=== PATIENT | male | born 2000 | race Caucasian/White ===

== ENCOUNTER 2023-11-23 20:27 | Emergency (ER) | payer OTHER, SELFPAY ==
[2023-11-23 20:27] VITALS: BP 123/86; PULSE 68; RESP 15; TEMP 37; O2SAT 99; BMI 27.2
--- NOTE | 2023-11-23 21:12 | EX.ED.DYSGE1 ---
HPI History of Present Illness Chief Complaint: Abd Pain PFSH PFSH Medical History no medical history Home Medications ondansetron 4 mg disintegrating tablet 4 mg PO Q8H PRN PRN Nausea #10 tabs 11/23/23 [Rx Last Taken Unknown] Allergy/AdvReac Type Severity Reaction Status Date / Time No Known Allergies Allergy Verified 11/23/23 20:31 Surgical History no surgical history Social History Smoking Status: Never smoker EXAM Physical Exam Const Vital Signs: 11/23/23 20:27 11/23/23 22:44 Temperature 98.6 F Temperature Source Temporal Pulse Rate 68 Respiratory Rate 15 18 Blood Pressure 123/86 H 138/74 H Blood Pressure Mean 98 95 Pulse Ox 99 Oxygen Delivery Method Room Air [facility] MDM Narrative Medical decision making narrative: HISTORY OF PRESENT ILLNESS: 23-year-old male presents with abdominal pain. States has history umbilical hernia. States he is at work today stood up and noted abdominal pain rating to his groin. States pain is located around his umbilicus. Sharp. He further states he was at work today and developed severe abdominal pain that radiated to his right groin. Denies any vomiting or nausea. Denies any constipation. No history abdominal surgeries. States he seen 2 different surgeons was told him he did not have a hernia. REVIEW OF SYSTEMS: Pertinent positives: Abdominal pain Pertinent negatives: Vomiting, fever, urinary complaints, constipation or diarrhea. PHYSICAL EXAM: Nursing triage notes reviewed, Vital signs reviewed Constitutional: please see mdm HENT: MMM Eyes: Pupils equal round and reactive to light, Extraocular muscles intact Neck: No stridor, no JVD, full neck ROM Lungs: Clear to auscultation, No wheezing or rales. No increased work of breathing, no conversational dyspnea, no accessory muscle use, no nasal flaring. No respiratory distress noted Heart: Regular rate and rhythm, No murmurs, No rubs and No gallops, 2+ distal pulses (radial, femoral, posterior tibial) in all extremities Abdomen: Soft, there is no tenderness, rigidity, rebound or guarding, no obvious peritoneal signs, no palpable pulsatile abdominal masses, no auscultated abdominal bruit : No CVAT, right testicle without tenderness palpation, normal lie, no swelling, intact cremaster reflex. Extremities: No edema Neuro: No focal neurological deficits, cranial nerves II through XII intact, 5/5 strength in all extremities. Intact sensation to light touch in all extremities, 2+ reflexes bilateral patella tendons. Normal gait. No ataxia. Skin: No rash or lesions noted MEDICAL DECISION MAKING: Chief Complaint: Abdominal pain concern for hernia External records reviewed: Prior outpatient notes reviewed: Saw general surgery in January 2023 was diagnosed with chronic groin strain. No obvious inguinal hernia was noted. Factors affecting care: Groin strain Consults: Urology (Dr. Shrestha) MDM Narrative: Patient was hemodynamically stable, afebrile, nontoxic-appearing. Abdominal exam was benign no obvious hernia. No peritoneal signs. I considered the following differential diagnosis: Umbilical hernia, nephrolithiasis, pancreatitis, UTI, pyelonephritis, epididymitis There is no scrotal tenderness to suggest epididymitis. I obtained a broad lab and imaging workup to further elucidate the etiology of the patient's complaints. I treated the patient with 1 L normal saline, Zofran and Toradol. ALL IMAGES (IF OBTAINED) HAVE BEEN PERSONALLY REVIEWED AND INTERPRETED BY MYSELF. CBC without leukocytosis, severe anemia, no thrombocytopenia. CMP without evidence of acute kidney injury, significant electrolyte abnormality, anion gap, no evidence hepatobiliary pathology. Lactate is wnl indicating no end-organ hypoperfusion and/or hypoxia. Urinalysis shows no evidence of urinary inflammation suggestive of UTI CT scan shows evidence 8 mm proximal right kidney stone with hydronephrosis The synthesis of the patient's history, physical exam, labs images suggest kidney stone as potential etiology. Patient no evidence of infected stone. His pain was controlled was instructed to take Tylenol ibuprofen and follow-up with urology as an outpatient. Did call urology spoke with Dr. Shrestha who stated the patient did not require inpatient mission at this time or surgical intervention is appropriate for discharge home with close outpatient follow-up. The patient and/or family, caregivers express understanding. The patient and/or family, caregivers agrees with the plan. Shared decision making: I will have a discussion with the patient and or visitors regarding risk/benefits of further testing or admission. They will be made aware of of the risk/benefits inherent in this decision they will be given the opportunity to voice understanding. Total critical care time today provided was at least 0 minutes. This excludes separately billable procedures. Critical care time (if documented) is secondary to the patient having high probability of clinically significant/life threatening deterioration in the patient's condition which required my urgent intervention. Impression: 1. Abdominal pain 2. Nephrolithiasis 3. Hydronephrosis Dispo: Discharge home This note was generated with [employer] dictation software. It may contain incorrect words, spelling, and punctuation that were not noted in review of the chart prior to signing. Lab Data Labs: Laboratory Results - last 24 hr 11/23/23 11/23/23 21:45 22:10 WBC 6.5 RBC 4.98 Hgb 13.9 Hct 42.9 MCV 86.1 MCH 27.9 MCHC 32.4 RDW Std Deviation 37.2 RDW Coeff of Varinder 11.9 Plt Count 260 MPV 10.0 Immature Gran % (Auto) 0.300 Neut % (Auto) 49.0 Lymph % (Auto) 38.2 Sumner % (Auto) 8.9 Eos % (Auto) 2.4 Baso % (Auto) 1.2 H Absolute Neuts (auto) 3.2 Absolute Lymphs (auto) 2.50 Nucleated RBC % 0 Sodium 137 Potassium 3.8 Chloride 105 Carbon Dioxide 29.0 Anion Gap 3 L BUN 14 Creatinine 1.22 Estim Creat Clear Calc 96.40 Est GFR (MDRD) Af Amer 94 Est GFR (MDRD) Non-Af 77 BUN/Creatinine Ratio 11.5 Glucose 96 Lactic Acid 0.5 Calcium 9.3 Total Bilirubin 0.50 Direct Bilirubin 0.13 AST 16 ALT 21 Alkaline Phosphatase 48 Total Protein 7.3 Albumin 3.9 Globulin 3.4 Urine Color Yellow Urine Clarity Clear Urine pH 6.5 Ur Specific Newell 1.015 Urine Protein Negative Urine Glucose (UA) Normal Urine Ketones Negative Urine Occult Blood 10 H Urine Nitrite Negative Urine Bilirubin Negative Urine Urobilinogen Normal Ur Leukocyte Esterase Negative Urine RBC 0 SEEN Urine WBC 0 SEEN Ur Squamous Epith Cells 0 SEEN Urine Bacteria 0 SEEN Urine Mucus 0 SEEN Radiography Diagnostic Testing: Clinical Impression(s) from Imaging Studies Abdomen/Pelvis CT 11/23/23 21:28 IMPRESSION: 1. Thin linear 8 mm stone in the proximal right ureter with moderate right hydronephrosis. 2. No hernia. Electronically Signed: Eyal Valente DO at 22:20 EST , Discharge Plan Triage Chief Complaint: Abd Pain ED Provider: Wojciech Hartman Dx/Rx/DC Orders Clinical Impression: Nephrolithiasis Instructions: ED Kidney Stone with Pain Prescriptions: New ondansetron 4 mg tablet,disintegrating 4 mg PO Q8H PRN PRN (Reason: Nausea) Qty: 10 0RF Primary Care Provider: Chuckie May Referrals: Chuckie May MD [Primary Care Provider] - Activity Restrictions/Additional Instructions: Thank you for trusting us with your care today! Please take Tylenol (2 pills, 650 mg), ibuprofen (2 pills, 400 mg) every 6 hours as needed for pain and fever control. Please take Zofran as needed for nausea if this develops. Please return to the emergency department if your symptoms change or worsen. Specifically develop fever, if you lose consciousness, develop worsening pain that is not improved by the above regiment. Please follow with your primary care physician for further outpatient evaluation and management. Disposition Disposition: Home, Self Care
--- NOTE | 2023-11-23 21:28 | CT_ITS ---
INDICATION: Periumbilical abdominal pain, rule out hernia EXAMINATION: CT Abdomen And Pelvis W/ Contrast Injection TECHNIQUE: Helically acquired images were obtained of the abdomen and pelvis with sagittal and coronal reconstructed images. Individualized dose optimization techniques were used for this CT. IV contrast dosage and agent: 100 mL of Isovue-370. Oral contrast: None. COMPARISON: None. FINDINGS: VESSELS: No abdominal aortic aneurysm or dissection. Retroaortic left renal vein. LIVER: No evidence of a mass. No intrahepatic or extrahepatic biliary duct dilation. GALLBLADDER: No calcified stones. No evidence of cholecystitis. PANCREAS: No focal solid or cystic mass. No evidence of pancreatitis. SPLEEN: Normal. ADRENAL GLANDS: Normal. KIDNEYS AND URETERS: Right lower pole renal stone. 8 mm thin linear calcification within the proximal right ureter. Moderate right hydronephrosis. No significant asymmetric perinephric stranding. URINARY BLADDER: Unremarkable. BOWEL: No evidence of diverticulosis or diverticulitis. Appendix appears normal. No evidence of bowel obstruction. REPRODUCTIVE ORGANS: No evidence of a pelvic mass. PERITONEUM: No intraabdominal free fluid or free air. LYMPH NODES: No pathologically enlarged mesenteric or retroperitoneal lymph nodes. ABDOMINAL WALL: No abdominal or pelvic wall hernia. BONES: No acute abnormality. LOWER CHEST: Visualized lung bases are unremarkable. CT/Abdomen/Pelvis W IV Cont ONLY IMPRESSION: 1. Thin linear 8 mm stone in the proximal right ureter with moderate right hydronephrosis. 2. No hernia. Electronically Signed: Eyal Valente DO at 22:20 EST ,
[2023-11-23] MEDS: Ketorolac 15 MG/ML Vial IV (21:40)
[2023-11-23] MEDS: 0.9% Normal Saline (1000mL) 1,000 ML 1000 ML IV (21:40)
[2023-11-23] MEDS: Ondansetron 4 MG/2 ML Vial IV (21:41)
--- OUTSIDE RECORDS SUMMARY | 2023-11-23 21:41 | XMS RPT_ITS | CCD ---
Author Name Unknown Address [address] [place] [address] Organization [facility] Care Team Providers Care Video News Editor Name Role Phone Gunjan Pendleton Unavailable GINNA [facility] Admitting Unavaila linda [facility], [facility] Attending Unavaila linda [facility], [facility] Primary Care Unavaila BRENDON Shah Consulting Unavailable PROVIDER, UNKNOWN Consulting Unavailable CHUCKIE MAY Admitting Unavailable CHUCKIE MAY Attending Unavailable CHUCKIE MAY Primary Care Unavailable CHUCKIE MAY Consulting Unavailable PROVIDER, UNKNOWN Consulting Unavailable PROVIDER, UNKNOWN Consulting Unavailable PROVIDER, UNKNOWN Consulting Unavailable Chuckie May MD Unavailable [facility] Unavailable [phone] Huyen RAMON, Caity Garcia Unavailable Nigel MACHINE TOOL ELECTRICIAN, Jessica Unavailable Goric (scribe), Hemanta Unavailable Unavaila ble De GREWALN, Alaina Unavailable Unavailable Fredy RAMON, Alejandro Benoit Unavailable Shabana Maki PA-C Unavailable King JENNAC, Felipe Hawkins Unavailable Shabana Zelaya RN Unavailable Unavaila Elzbieta Adams RN Unavailable [phone] Brendon Collins PA-C Unavailable Prosper (Scribe), Oleksandr Unavailable Unavailab yadi Rea MACHINE TOOL ELECTRICIAN, Caity Gipson Unavailable Unavailab yadi Monge LPN, Selena Prather Unavailable Unavailab yadi Silva LPN, Amaya Unavailable Unavailesperanza Jiménez LPN, Amy Wilson Unavailable Unavaila ble Unavailable Unavailable [facility], . [facility] Unavailable [facility] Unavailable Medications Completed/Discontinued Medications Medication Drug Class(es) Dates Sig (Normalized) Sig (Original) [id number] 200 actuat albuterol 0.09 mg/actuat metered dose inhaler (6 sources) beta2-Adrenergic Agonist Start: 05-28-2017 End: 02-12-2023 take 2 puff(s) by inhalation every hour as needed ProAir HFA 108 (90 Base) MCG/ACT Inhalation Aerosol Solution ; 2 (two) puff every four hours, as needed for cough/wheeze/chest tightness for 0 days Quantity: 1 {Inhaler} Refills: 3 Ordered: 28-May-2017 JAUNITO Monge Selena Prather Start: 28-May-2017 End: 12-Feb-2023 Status: Discontinued Comments: Medication taken as needed. This order discontinued per -Span. Problems Active Problems Problem Classification Problem Date Documented Da te Episodic/Chronic Abdominal hernia (12 sources) Right inguinal hernia ; Translations: [Unilateral inguinal hernia, without obstruction or gangrene, not specified as recurrent] 05-14-2023 Episodic Abdominal pain (17 sources) Abdominal pain, right lower quadrant; Translations: [Inguinal pain] 09-22-2013 Episodic Administrative/social admission (9 sources) Persons encountering health services in other specified circumstances; Translations: [Issue of repeat prescriptions] Onset: 06-11-2019 06-04-2017 Episodic Asthma (20 sources) Exercise-induced asthma; Translations: [Exercise induced bronchospasm] 05-14-2023 Chronic Chronic obstructive pulmonary disease and bronchiectasis (6 sources) Bronchitis; Translations: [Bronchitis, not specified as acute or chronic] 10-31-2016 Episodic Fracture of lower limb (18 sources) Closed fracture of sesamoid bone of foot; Translations: [Other fracture of unspecified foot, initial encounter for closed fracture] 01-17-2018 Episodic Genitourinary symptoms and ill-defined conditions (6 sources) Blood in urine; Translations: [Hematuria, unspecified] 02-21-2019 Episodic Immunizations and screening for infectious disease (20 sources) Requires vaccination; Translations: [Encounter for immunization] 01-04-2016 Episodic Inflammation; infection of eye (except that caused by tuberculosis or sexually transmitteddisease) (6 sources) Conjunctivitis, unspecified 03-19-2015 Episodic Malaise and fatigue (6 sources) Fatigue; Translations: [Other fatigue] 07-29-2013 Episodic Other aftercare (6 sources) Drug indicated; Translations: [Other skilled nursing (current) drug therapy] 04-04-2012 Episodic Other bone disease and musculoskeletal deformities (1 source) Apophysitis; Translations: [Osteochondropathy, unspecified of unspecified site] Onset: 08-07-2017 08-07-2017 Chronic Other connective tissue disease (6 sources) Foot pain; Translations: [Pain in left foot] 08-07-2012 Episodic Other gastrointestinal disorders (12 sources) Irritable bowel syndrome; Translations: [Irritable bowel syndrome without diarrhea] 05-14-2023 Chronic Other injuries and conditions due to external causes (12 sources) Injury of foot; Translations: [Unspecified injury of unspecified foot, initial encounter] 05-14-2023 Episodic Other injuries and conditions due to external causes (6 sources) Injury of left shoulder; Translations: [Unspecified injury of left shoulder and upper arm, initial encounter] 07-28-2016 Episodic Other injuries and conditions due to external causes (4 sources) Other specified injuries of abdomen, initial encounter; Translations: [Other specified sites of sprains and strains] 11-12-2023 Episodic Other lower respiratory disease (6 sources) Rib pain; Translations: [Pleurodynia] 09-22-2013 Episodic Other skin disorders (6 sources) Acne; Translations: [Acne, unspecified] 05-28-2017 Episodic Other upper respiratory disease (20 sources) Allergic rhinitis; Translations: [Allergic rhinitis, unspecified] 05-03-2015 Chronic Other upper respiratory infections (18 sources) Sinusitis; Translations: [Chronic sinusitis, unspecified] 10-07-2018 Chronic Other upper respiratory infections (20 sources) Acute maxillary sinusitis; Translations: [Acute maxillary sinusitis, unspecified] 05-22-2017 Episodic Otitis media and related conditions (18 sources) Acute suppurative otitis media without spontaneous rupture of ear drum; Translations: [Acute suppurative otitis media without spontaneous rupture of ear drum, bilateral] 09-04-2016 Episodic Pneumonia (except that caused by tuberculosis or sexually transmitted disease) (12 sources) Bacterial pneumonia; Translations: [Unspecified bacterial pneumonia] 08-17-2015 Episodic Residual codes; unclassified (18 sources) Finding of body mass index; Translations: [Body mass index (BMI) pediatric, 5th percentile to less than 85th percentile for age] 05-14-2023 Episodic Unclassified (6 sources) not feeling well - Hasn't been feeling well over the last couple months. Had a sinus infection in May initially and then strep symptoms in early Jun (rapid strep and cultures negative). Symptoms variable and primarily include fatigue. Has been taking MVI and vitamin C. Complains of upset stomach, feeling tired and run down. He complains of headaches. He does not have a fever or sore throat. He enjoys school and is active in football. Does get a little winded when playing football but this is chronic for him.Several football players he interacts with have mono. 07-29-2013 Unclassified (6 sources) Cold Symptoms - Symptoms include nasal congestion (chronic seasonal allergies, this has not been worse since onset of fever), sore throat, fever, chills, general malaise and headache, but do not include sneezing, runny nose, ear pain, dry cough or facial pain. The onset was gradual 4 day(s) ago. The symptoms occur constantly. The patient describes this as moderate in severity and worsening. Current treatment includes non-prescription cold medication. Risk factors do not include smoking. The patient has been exposed to an individual with an upper respiratory infection and an individual with strep (2 weeks ago sister had strep). Medical history includes seasonal allergies, recurrent sinusitis and asthma (sports induced asthma), but patient denies history of recurrent strep pharyngitis, tonsillectomy or recurrent ear infections. Note for Cold Symptoms : Pt c/o generalized aching and swollen glands. Pt. also c/o right side pain x 1 day. No c/o nausea or vomiting, no change in BM pattern, no dysuria 12-18-2011 Viral infection (12 sources) Viral exanthem; Translations: [Unspecified viral infection characterized by skin and mucous membrane lesions] 05-14-2023 Episodic Past or Other Problems Problem Classification Problem Date Documented Date Episodic/Chronic Acquired foot deformities (1 source) Pes planus; Translations: [Flat foot [pes planus] (acquired), unspecified foot] Onset: 04-28-2016 04-28-2016 Episodic Other connective tissue disease (1 source) Other bursitis of hip, unspecified hip; Translations: [Other bursitis of hip, unspecified hip] Onset: 08-07-2017 08-07-2017 Episodic Other connective tissue disease (1 source) Peroneal tendinitis; Translations: [Peroneal tendinitis, unspecified leg] Onset: 06-09-2016 06-20-2016 Episodic Other connective tissue disease (1 source) Achilles tendinitis; Translations: [Achilles tendinitis, right leg] Onset: 04-28-2016 04-28-2016 Episodic Other nervous system disorders (1 source) Piriformis syndrome; Translations: [Lesion of sciatic nerve, right lower limb] Onset: 08-07-2017 08-07-2017 Episodic Other non-traumatic joint disorders (1 source) Hip pain; Translations: [Pain in right hip] Onset: 08-07-2017 08-07-2017 Episodic Other non-traumatic joint disorders (1 source) Ankle pain; Translations: [Pain in right ankle and joints of right foot] Onset: 04-28-2016 04-28-2016 Episodic Pneumonia (except that caused by tuberculosis or sexually transmitted disease) (6 sources) Pneumonia (except that caused by tuberculosis or sexually transmitted disease) 08-17-2015 Unclassified (6 sources) Rash - The onset of the rash has been acute and has been occurring in a persistent pattern for 3 days. The course has been increasing. The rash is characterized as red. The rash was first seen on the face, the upper extremity and the lower extremity. There has been associated pain. Note for Rash : no fever he is aware of. A few days ago he had BELTRAN, no appetite, a little achey. 05-14-2023 Unclassified (6 sources) Abdominal pain - The onset of the abdominal pain has been acute and has been occurring in an intermittent pattern for 6 weeks. The course has been increasing. The pain is described as a moderate sharp pain and dull ache. The pain is located in the right lower quadrant and radiates to the right groin. There has been no associated dysuria. Note for Abdominal pain : is aggravated by lifting. reviewed by [facility] 02-13-2023 Unclassified (6 sources) Foot pain - The pain is in the left foot. The onset of the foot pain was sudden following an incident not at work (injured while playing softball.) and has been occurring in a persistent pattern for 3 days. The course has been worsening. The pain is moderate. The pain is characterized as a sharp stabbing. The pain has not been relieved by anything. Note for Foot pain : Pain ia across the arch and laterally in the left foot. 05-25-2020 Unclassified (6 sources) UTI - Symptoms include dysuria, urinary frequency, urinary urgency, hematuria (this am), abdominal pain and back pain. The pain is located in the back (right side, then it will go around to his abdomen). Onset was sudden (was having intermittently for about a week but now it is constant). The symptoms occur constantly. The patient describes this as moderate in severity and worsening. Associated symptoms do not include fever, chills, nausea or vomiting. Note for UTI : Ibuprofen 600mg this am. 02-21-2019 Unclassified (6 sources) Cold Symptoms - Symptoms include sneezing, nasal congestion, ear pain (right side), ear fullness, sore throat, chills, general malaise and headache, but do not include runny nose, dry cough, productive cough or fever. The onset was sudden 1 week(s) ago. The symptoms occur constantly. The patient describes this as moderate in severity and unchanged. Current treatment includes non-prescription cold medication. 10-07-2018 Unclassified (6 sources) re check foot - patient seen on 12/25/2017 for fractoure of sesamoid bone on R foot. patient said foot feels better wearing boot. no swelling or tenderness to foot. would like to go back to work january 28 01-17-2018 Unclassified (6 sources) Foot pain - The pain is in the right foot and is located in the dorsal foot (medial side). The onset of the foot pain was sudden (patient was lifting weights and while squatting, felt a pinch of his right foot.) and has been occurring in a persistent pattern for 1 day. The course has been gradually worsening. The pain is characterized as a sharp stabbing (becomes sharper with weight bearing). The pain has not been relieved by anything. There have been no previous diagnostic tests. There have been no previous surgeries. Note for Foot pain : This morning, is have foot swelling and starting to bruise. 12-25-2017 Unclassified (6 sources) Well child visit #4 - 13 to 17 years - The child is here for a 16 to 17 year well-child visit. The primary caregiver is the mother and father (seperated). Family status: coping adequately. There are no behavioral problems. The patient has a balanced diet. There are no eating difficulties. Meals/day: 3. The child sleeps 8 hours at night. The child performs well in school, interacts well with peers and participates in extracurricular activities. Safety measures taken include appropriate use of safety belts and home smoke detectors. 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 05-28-2017 Unclassified (6 sources) Cold Symptoms - Symptoms include sore throat, hoarseness, dry cough (occasionally will be productive), fever (last night), chills, general malaise (body aches), headache and facial pain, but do not include nasal congestion, runny nose or ear pain. The onset was sudden 1 week(s) ago. The symptoms occur constantly. The patient describes this as moderate in severity and worsening. Current treatment includes an oral decongestant (Sudafed) and NSAIDs. The patient has not been exposed to an individual with an upper respiratory infection. Medical history includes seasonal allergies and asthma (sports induced asthma). Note for Upper respiratory infection : Reviewed by [facility]. 05-22-2017 Unclassified (6 sources) Cold Symptoms - Symptoms include nasal congestion, runny nose, ear pain (both), ear fullness, dry cough, productive cough and headache, but do not include fever. The onset was gradual 1 week(s) ago. The symptoms occur constantly. The patient describes this as moderate in severity and worsening. Current treatment includes an oral decongestant. Risk factors do not include child in daycare or smoking. The patient has been exposed to an individual with similar symptoms. 11-30-2016 Unclassified (6 sources) Cold Symptoms - Symptoms include sneezing, nasal congestion, runny nose, ear pain (bilateral), sore throat, hoarseness, dry cough, fever, chills, general malaise and headache. The onset was sudden 7 day(s) ago. The symptoms occur constantly. The patient describes this as moderate in severity and unchanged. Current treatment includes acetaminophen and NSAIDs. Note for Upper respiratory infection : reviewed by [facility] 10-31-2016 Unclassified (6 sources) Cold Symptoms - Symptoms include nasal congestion, ear pain, ear fullness, scratchy throat, hoarseness, dry cough, fever, chills, general malaise and headache, but do not include sneezing or runny nose. The onset was gradual 5 day(s) ago. The symptoms occur constantly. The patient describes this as moderate in severity and worsening. Current treatment includes cough suppressants, acetaminophen and NSAIDs. Risk factors do not include smoking. The patient has been exposed to an individual with similar symptoms. Medical history includes seasonal allergies, recurrent sinusitis and asthma, but patient denies history of tonsillectomy or recurrent ear infections. 09-04-2016 Unclassified (6 sources) Clavicle pain - Patient is here today due to having pain of the left clavicle area that occurred while playing soccer last evening. His left upper chest/shoulder was impacted by another player, he fell down on his left side and then was going to get a ball, fell backwards. The pain is constant, will become sharp with movement. Is painful to raise his left arm. No numbness or tingling, or radiation of pain down the left arm. Been applying Ice to the area and taking ibuprofen as needed for pain. No previous surgeries or xrays of this area. Has had multiple injuries to this shoulder over last week in soccer. 07-28-2016 Unclassified (6 sources) Cold Symptoms - Symptoms include nasal congestion, ear pain, sore throat, dry cough, fever (didn't check temp), chills and headache, but do not include runny nose. The onset was gradual 1 week(s) ago. The symptoms occur constantly. The patient describes this as moderate in severity and unchanged. Current treatment includes allergy medications and NSAIDs. The patient has been exposed to an individual with similar symptoms (school). Medical history includes seasonal allergies and recurrent sinusitis, but patient denies history of recurrent strep pharyngitis, asthma, tonsillectomy or recurrent ear infections. Note for Upper respiratory infection : Has also had a stomach ache. 2016 Unclassified (2 sources) Transition into care - The patient is transitioning into care from a hospital (01/2016 [facility], 03/2016 urology, 11/2015 ER) and a summary of care was reviewed . Note for Transition into care : Back pain improved since procedure was done. 05-27-2016 Unclassified (2 sources) [ADDITIONAL REASON] Well child visit #4 - 13 to 17 years - The child is here for a 16 to 17 year well-child visit. The primary caregiver is the mother and father (seperated). Family status: coping adequately. There are no behavioral problems. The patient has a balanced diet. There are no eating difficulties. Meals/day: 3. The child sleeps 7 hours at night. The child performs well in school, interacts well with peers and participates in extracurricular activities. Safety measures taken include appropriate use of safety belts and home smoke detectors. Note for Well child visit #4 - 13 to 17 years : He will be playing soccer, basketball, and baseball.No concerns today. 05-27-2016 Unclassified (6 sources) Cold Symptoms - Symptoms include sneezing, nasal congestion (with associated pressure around right eye (hurts to move that eye)), runny nose, purulent discharge, ear pain (mostly the left ear), sore throat, dry cough, productive cough (sometimes, from PND), fever (yesterday, subjective), general malaise, headache and facial pain (sinus pressure), but do not include hoarseness or chills (sometimes). The onset was gradual 3 day(s) ago. The symptoms occur constantly. The patient describes this as moderate in severity and worsening. Current treatment includes non-prescription cold medication (Nyquil) and an oral decongestant (Sudafed). Risk factors do not include smoking. The patient has been exposed to an individual with a cough, an individual with an upper respiratory infection and an individual with similar symptoms. Medical history includes seasonal allergies and asthma. 11-08-2015 Unclassified (6 sources) continued cough and congestion - Patient saw [facility] 08/02/15 and was diagnosed with URI and treated with augmentin. Pt. is continuing to take the antibiotic and tylenol/advil with minimal improvement. Pt. continues with a cough, chest discomfort and episdoes of shortness of breath. Pt. c/o bilateral ear pain (right > left) Pt. runs a low grade fever at times. 08-11-2015 Unclassified (6 sources) Cold Symptoms - Symptoms include ear pain, ear fullness, sore throat, dry cough, productive cough (Pt c/o chest discomfort at times.), fever, chills, general malaise and headache, but do not include sneezing, nasal congestion, runny nose or wheezing. The onset was gradual 5 day(s) ago. The symptoms occur constantly. The patient describes this as moderate in severity and worsening. Current treatment includes cough suppressants, acetaminophen and NSAIDs. Risk factors do not include smoking. The patient has been exposed to an individual with similar symptoms. Medical history includes recurrent sinusitis and asthma (exercise induced). Note for Upper respiratory infection : Pt. c/o bloody nose yesterday. 08-02-2015 Unclassified (6 sources) Form Completion Physicals - The patient feels well with no complaints, has good energy level and is sleeping well. There are no current symptoms. The patient exercises daily. The patient has an appropriate balanced diet, eats a variety of foods and takes no supplemental vitamins or iron and sleeps on average 6 hours per night. Safety measures include appropriate use of car seats/safety belts, appropriate use of helmets, appropriate use of safety belts, avoiding exposure to passive smoke and awareness of dangers of passenger-side air bags. There are no behavioral problems. Note for Form completion physical : reviewed by tiffanie 05-03-2015 Unclassified (6 sources) Cold Symptoms - Symptoms include nasal congestion, purulent discharge (post nasal), ear fullness, sore throat, dry cough (chest discomfrt at times (4 days)), headache and facial pain, but do not include sneezing, runny nose, ear pain, fever or chills. The onset was gradual week(s) ago. The symptoms occur constantly. The patient describes this as moderate in severity and worsening. Current treatment includes non-prescription cold medication, allergy medications and cough suppressants. Risk factors do not include smoking. The patient has not been exposed to an individual with similar symptoms. Medical history includes seasonal allergies (allergy injections weekly) and recurrent sinusitis, but patient denies history of asthma or tonsillectomy. 04-12-2015 Unclassified (6 sources) Eye symptoms - The onset of the eye symptoms has been sudden and has been occurring for 1 day. The course has been worsening. The eye symptoms are described as moderate and involve the left eye. The symptoms are described as pain and itching. There has been associated nasal stuffiness, runny nose and watery eyes, while there has been no blurred vision, headache or sore throat. Note for Eye symptoms : Patient and mother are concerned of having pink eye due to being told that there has been some cases of pink eye in the school recently. Does not wear contacts. No injury to eye and he has not gotten anything in eye. 03-19-2015 Unclassified (6 sources) Cold Symptoms - Symptoms include nasal congestion, ear pain (left; at onset prior to cold sx), productive cough (no dyspnea but nasal congestion makes him feel like he can't breathe), chills and general malaise, but do not include runny nose (does have PND), sore throat or fever. The onset was sudden 5 day(s) ago. The patient describes this as moderate in severity and worsening. Current treatment includes non-prescription cold medication, a decongestant nasal spray and NSAIDs. Risk factors do not include child in daycare or smoking. The patient has not been exposed to an individual with similar symptoms. 12-01-2014 Unclassified (6 sources) Cold Symptoms - Symptoms include nasal congestion, purulent discharge (post nasal), ear pain, ear fullness, scratchy throat, hoarseness, dry cough, general malaise, headache and facial pain, but do not include sneezing, runny nose, sore throat, fever or chills. The onset was gradual 3 day(s) ago. The symptoms occur constantly. The patient describes this as moderate in severity and unchanged. Current treatment includes non-prescription cold medication. Risk factors do not include smoking. The patient has not been exposed to an individual with similar symptoms. Medical history includes seasonal allergies (receives shots weekly - states that this is is very different than how his allergies act) and asthma (sports induced), but patient denies history of recurrent sinusitis, recurrent strep pharyngitis, tonsillectomy or recurrent ear infections. 06-01-2014 Unclassified (6 sources) Well child visit #4 - 13 to 17 years - The child is here for a 14 to 15 year well-child visit. The primary caregiver is the mother and father. Family status: coping adequately. There are no behavioral problems. The patient has a balanced diet. Meals/day: 3. The child performs well in school, interacts well with peers and participates in extracurricular activities. Safety measures taken include appropriate use of safety belts, home smoke detectors, avoiding exposure to passive smoke, counseling regarding substance abuse, counseling regarding safe sex/HIV and counseling regarding control. 05-12-2014 Unclassified (6 sources) Abdominal pain - The onset of the abdominal pain has been acute and has been occurring in a persistent pattern for 2 days. The course has been constant. The pain is described as a moderate sharp pain. The pain is located in the right upper quadrant and does not radiate. The symptoms are aggravated by standing, walking and motion. The symptoms have been associated with nausea, while the symptoms have not been associated with bloody stools, constipation, diarrhea, dysuria, fever, hematemesis or vomiting. Note for Abdominal pain : Pt got hit with a ball, in right upper abd Sunday. No c/o continual discomfort until later that day. Walking and moving increases pain, while resting and lying down relieves pain. Also ibuprofen helped relieve pain last night. 09-22-2013 Unclassified (6 sources) Cold Symptoms - Symptoms include nasal congestion, purulent discharge, ear fullness, scratchy throat, productive cough, fever (possibly), chills, general malaise, headache and facial pain, but do not include sneezing, ear pain or sore throat. The onset was gradual 1 week(s) ago. The symptoms occur constantly. The patient describes this as moderate in severity and worsening. Current treatment includes non-prescription cold medication (tylenol cold and cough med) and acetaminophen. The patient has been exposed to an individual with similar symptoms. Medical history includes seasonal allergies (shots weekly), recurrent sinusitis and asthma (sports induced), but patient denies history of recurrent strep pharyngitis, tonsillectomy or recurrent ear infections. 09-15-2013 Unclassified (6 sources) Sore throat - The onset of the sore throat has been acute and has been occurring in a persistent pattern for 1 day. The course has been constant. The sore throat is described as mild to moderate. The sore throat was precipitated by sinus infection (just completed course of augmentin for sinus infection). Symptoms include sore throat, fever (subjective), headache and runny nose (slight), but do not include nasal congestion, cough or ear pain. Relieving factors include nothing (has not tried meds). Medical history Includes seasonal allergies (have flared recently). Note for Sore throat : Patient has had contact with football teammates who have had strep recently. 2013 Unclassified (6 sources) Cold Symptoms - Symptoms include nasal congestion, runny nose (drainage has been clear), ear pain (bilateral; popping), sore throat (just with coughing), dry cough, headache and facial pain (cheeks), but do not include fever. The onset was gradual 2 day(s) ago. The symptoms occur constantly. The patient describes this as moderate in severity and worsening. Current treatment includes non-prescription cold medication (tylenol cold multi-symptom) and allergy medications (gets shots every 2 weeks). The patient has been exposed to an individual with similar symptoms (mom and dad). Medical history includes seasonal allergies and recurrent sinusitis. 06-18-2013 Unclassified (6 sources) Form Completion Physicals - The patient feels well with no complaints, has good energy level and is sleeping well. There are no current symptoms. The patient exercises daily. The patient has an appropriate balanced diet and takes suppemental vitamins. Safety measures include appropriate use of car seats/safety belts, appropriate use of helmets, appropriate use of safety belts, avoiding exposure to passive smoke and awareness of dangers of passenger-side air bags. There are no behavioral problems. Note for Form completion physical : reviewed by tiffanie 05-09-2013 Unclassified (6 sources) Cold Symptoms - Symptoms include nasal congestion, runny nose (minimal), sore throat (started initially with this 3-4 days ago; improving - is now mostly with coughing), dry cough and headache, but do not include fever. The onset was gradual 2 day(s) ago. The symptoms occur constantly. The patient describes this as moderate in severity and worsening. Current treatment includes acetaminophen (multisymptom; has a prescription for flonase but hasn't been using it). 01-15-2013 Unclassified (6 sources) Foot pain - The pain is in the left foot and is located in the lateral column. The onset of the foot pain was acute and has been occurring in an intermittent pattern for 3 days. The pain is moderate. The pain is characterized as a sharp stabbing (when he is on the foot). The pain is aggravated by sports activities. The pain has been relieved by ice (minimal). The symptoms have been associated with swelling (lump/swelling on side of foot). The pain was preceded by trauma (kicked at football practice twice on Sunday). There have been no previous diagnostic tests. There have been no previous evaluations. There has been no use of assistive devices. Note for Foot pain : No OTC medication. 08-07-2012 Unclassified (6 sources) Form Completion Physicals - The patient feels well with no complaints, has good energy level and is sleeping well. There are no current symptoms. The patient has an appropriate balanced diet. Safety measures include appropriate use of car seats/safety belts, appropriate use of helmets, appropriate use of safety belts, avoiding exposure to passive smoke and awareness of dangers of passenger-side air bags. There are no behavioral problems. Last tetanus vaccination: Date: (05/16/11). Note for Form Completion Physicals : allergies are well controlled by current regimen; no longer needs inhaler. 04-19-2012 Unclassified (6 sources) Cold Symptoms - Symptoms include nasal congestion, ear fullness, dry cough and headache. The onset was sudden 1 week(s) ago. The symptoms occur constantly (cough is worse in the morning). The patient describes this as moderate in severity and worsening. Current treatment includes non-prescription cold medication and allergy medications (claritin D). Risk factors do not include child in daycare or smoking. The patient has not been exposed to an individual with similar symptoms. Medical history includes seasonal allergies (on immunotherapy). 03-29-2012 Unclassified (6 sources) Sore Throat - The onset of the sore throat has been sudden and has been occurring in an increasing pattern for 2 days. The course has been constant. The sore throat is described as moderate. The sore throat was precipitated by was not precipitated by sinus problems. Symptoms include sore throat and headache, but do not include fever, runny nose or cough. The symptoms are aggravated by eating and swallowing. Medical History Includes seasonal allergies. Note for Sore Throat : Took theraflu last night. A little stuffy nose this morning. Numerous ill contacts at school. 12-01-2011 Unclassified (6 sources) Cold Symptoms - Symptoms include nasal congestion, sore throat, chills and headache, but do not include sneezing, runny nose, dry cough, fever or facial pain. The onset was sudden 2 day(s) ago. The symptoms occur constantly. The patient describes this as moderate in severity and worsening. Current treatment includes acetaminophen. Medical History includes seasonal allergiesPatient denies history of asthma. Note for Cold Symptoms : Ill contacts at school (including classmates with strep). Has been using flonase every night. Hurts to swallow. 08-11-2011 Unclassified (6 sources) Form Completion Physicals - The patient feels well with minor complaints (Really having trouble with allergies. Sees Dr. Salazar and does the shots. Has been doing this for about 1 1/2 years. Normally does well with injections but allergies are really bad right now. Just had shot this afternoon. Very congested and miserable.). The patient exercises daily. The patient has an appropriate balanced diet and takes suppemental vitamins (Takes vitamin daily.) and sleeps on average 9 hours per night. Habits include caffeine (Drinks at least 1 pop daily.) use. Safety measures include appropriate use of helmets and appropriate use of safety belts. There are no behavioral problems. Last tetanus vaccination: Date: (LAst dtap was 2004.). 05-16-2011 Unclassified (6 sources) Cold Symptoms - Symptoms include sneezing, nasal congestion, runny nose, non-purulent sputum, sore throat, productive cough (chest and throat hurt when coughs) and headache, but do not include ear pain, ear fullness, wheezing, fever, chills, general malaise or facial pain. The onset was gradual 1 week(s) ago (was in [facility] last Tues, bronchitis and treated with zithromax). The symptoms occur constantly. The patient describes this as moderate in severity and unchanged. Current treatment includes antibiotics. The patient has been exposed to an individual with an upper respiratory infection. Medical History dose not include asthma or recurrent ear infections. 10-04-2010 Unclassified (5 sources) Abdominal pain - The onset of the abdominal pain has been acute and has been occurring in a persistent pattern for 3 weeks. The course has been increasing. The pain is described as a moderate sharp pain and dull ache. The pain is located in the right lower quadrant (right side is worse.) and left lower quadrant and radiates to the right upper quadrant. Note for Abdominal pain : Pain when going from sitting to standing . He was seen here in January 2023 and referred to surgery who did not feel he had a hernia. 11-06-2023 Unclassified (4 sources) Well child visit #4 - 13 to 17 years - The child is here for a 16 to 17 year well-child visit. The primary caregiver is the mother and father (seperated). Family status: coping adequately. There are no behavioral problems. The patient has a balanced diet. There are no eating difficulties. Meals/day: 3. The child sleeps 7 hours at night. The child performs well in school, interacts well with peers and participates in extracurricular activities. Safety measures taken include appropriate use of safety belts and home smoke detectors. Note for Well child visit #4 - 13 to 17 years : He will be playing soccer, basketball, and baseball.No concerns today. 05-27-2016 Unclassified (4 sources) [ADDITIONAL REASON] Transition into care - The patient is transitioning into care from a hospital ([facility] 03[facility] urology, 11/2015 ER) and a summary of care was reviewed . Note for Transition into care : Back pain improved since procedure was done. 05-27-2016 Results Test Name Value Interpretation Reference Range Facil ity Vital Signs Date Time Vital Sign Value Performing Clinician Esteban arias 11-06-2023 08:09-0500 Body height 177.8 cm Selena Monge LPN [employer] 11-06-2023 08:09-0500 Body mass index (BMI) [Ratio] 27.84 kg/m2 Selena Monge LPN [employer] 11-06-2023 08:09-0500 Body surface area Derived from formula 2.06 m2 Selena Monge LPN [employer] 11-06-2023 08:09-0500 Body temperature 98.8 [degF] Selena Monge LPN [employer] Encounters Encounter Date Encounter Type Care Provider Facility Start: 11-12-2023 End: 11-12-2023 Richard May MD Work Phone: [email or web address]. Start: 11-12-2023 End: 11-12-2023 Orders Chuckie May MD Work Phone: [email or web address]. Start: 11-06-2023 End: 11-06-2023 Office outpatient visit 15 minutes Chuckie May MD Work Phone: [email or web address]. Start: 11-06-2023 Review Chuckie May MD Work Phone: [email or web address]. Start: 05-14-2023 End: 05-14-2023 Office outpatient visit 15 minutes Chuckie May MD Work Phone: [email or web address]. Start: 02-13-2023 End: 02-13-2023 Office outpatient visit 15 minutes Chuckie May MD Work Phone: [email or web address]. Start: 05-25-2020 End: 05-25-2020 Patient encounter [facility] Start: 05-25-2020 End: 05-25-2020 Patient encounter procedure Chuckie May MD Work Phone: [email or web address]. Start: 06-11-2019 End: 06-11-2019 Patient encounter procedure [facility] Start: 02-21-2019 End: 02-21-2019 Office outpatient visit 15 minutes Chuckie May MD Work Phone: [email or web address]. Start: 10-07-2018 End: 10-07-2018 Office outpatient visit 15 minutes Chuckie May MD Work Phone: [email or web address]. Start: 01-17-2018 End: 01-17-2018 Office outpatient visit 15 minutes Chuckie May MD Work Phone: [email or web address]. Start: 01-02-2018 End: 01-02-2018 Orders Chuckie May MD Work Phone: [email or web address]. Start: 12-25-2017 End: 12-25-2017 Office outpatient visit 15 minutes Chuckie May MD Work Phone: [email or web address]. Start: 06-04-2017 End: 06-04-2017 Medication Chuckie May MD Work Phone: [email or web address]. Start: 05-28-2017 End: 05-28-2017 Patient encounter status Chuckie May MD Work Phone: [email or web address] [employer] Start: 05-28-2017 End: 05-28-2017 Periodic preventive med est patient 18-39 yrs Chuckie May MD Work Phone: [email or web address]. Start: 05-22-2017 End: 05-22-2017 Office outpatient visit 15 minutes Chuckie May MD Work Phone: [email or web address]. Start: 11-30-2016 End: 11-30-2016 Patient encounter procedure Chuckie May MD Work Phone: [email or web address]. Start: 10-31-2016 End: 10-31-2016 Office outpatient visit 15 minutes Chuckie May MD Work Phone: [employer] Start: 09-04-2016 End: 09-04-2016 Patient encounter procedure Chuckie May MD Work Phone: [email or web address]. Start: 07-28-2016 End: 07-28-2016 Patient encounter procedure Chuckie May MD Work Phone: [employer] Start: 2016 End: 2016 Patient encounter procedure Chuckie May MD Work Phone: [email or web address]. Start: 05-26-2016 End: 05-27-2016 Patient encounter procedure Chuckie May MD Work Phone: [email or web address]. Start: 05-26-2016 End: 05-27-2016 Patient encounter status Chuckie May MD Work Phone: [employer]; [email or web address]. Start: 01-04-2016 End: 01-04-2016 Nursing evaluation of patient and report Chuckie May MD Work Phone: [email or web address]. Start: 11-08-2015 End: 11-08-2015 Office outpatient visit 15 minutes Chuckie May MD Work Phone: [employer] Start: 08-17-2015 End: 08-17-2015 Patient encounter procedure Chuckie May MD Work Phone: [employer] Start: 08-11-2015 End: 08-11-2015 Patient encounter procedure Chuckie May MD Work Phone: [email or web address]. Start: 08-02-2015 End: 08-02-2015 Patient encounter procedure Chuckie May MD Work Phone: [employer] Start: 07-16-2015 End: 07-16-2015 Orders Chuckie May MD Work Phone: [email or web address]. Start: 05-14-2015 End: 05-14-2015 Nursing evaluation of patient and report Chuckie May MD Work Phone: [employer] Start: 05-03-2015 End: 05-03-2015 Periodic preventive med est patient 12-17yrs Chuckie May MD Work Phone: [employer] Start: 05-03-2015 End: 05-03-2015 Routine infant or child health check Chuckie May MD Work Phone: [employer]; [email or web address]. Start: 04-12-2015 End: 04-12-2015 Patient encounter procedure Chuckie May MD Work Phone: [employer] Start: 03-19-2015 End: 03-19-2015 Office outpatient visit 15 minutes Chuckie May MD Work Phone: [employer] Start: 12-01-2014 End: 12-01-2014 Office outpatient visit 15 minutes Chuckie May MD Work Phone: [employer] Start: 06-01-2014 End: 06-01-2014 Patient encounter procedure Chuckie May MD Work Phone: [employer] Start: 05-12-2014 End: 05-12-2014 Periodic preventive med est patient 12-17yrs Chuckie May MD Work Phone: [employer] Start: 05-12-2014 End: 05-12-2014 Routine or child health check Chuckie May MD Work Phone: [employer]; [email or web address]. Start: 09-22-2013 End: 09-22-2013 Patient encounter procedure Chuckie May MD Work Phone: [email or web address]. Start: 09-15-2013 End: 09-15-2013 Patient encounter procedure Chuckie May MD Work Phone: [employer] Start: 07-29-2013 End: 07-29-2013 Patient encounter procedure Chuckie May MD Work Phone: [employer] Start: 2013 End: 2013 Patient encounter procedure Chuckie May MD Work Phone: [employer] Start: 06-18-2013 End: 06-18-2013 Patient encounter procedure Chuckie May MD Work Phone: [employer] Start: 05-09-2013 End: 05-09-2013 Patient encounter procedure Chuckie May MD Work Phone: [email or web address]. Start: 05-09-2013 End: 05-09-2013 Routine general medical examination at a health care facility Chuckie May MD Work Phone: [employer]; [email or web address]. Start: 04-01-2013 End: 04-01-2013 Office outpatient visit 5 minutes Chuckie May MD Work Phone: [employer] Start: 03-18-2013 End: 03-18-2013 Office outpatient visit 5 minutes Chuckie May MD Work Phone: [email or web address]. Start: 03-04-2013 End: 03-04-2013 Nursing evaluation of patient and report Chuckie May MD Work Phone: [employer] Start: 02-18-2013 End: 02-18-2013 Office outpatient visit 5 minutes Chuckie May MD Work Phone: [email or web address]. Start: 02-04-2013 End: 02-04-2013 Orders Chuckie May MD Work Phone: [email or web address]. Start: 01-15-2013 End: 01-15-2013 Patient encounter procedure Chuckie May MD Work Phone: [employer] Start: 08-07-2012 End: 08-07-2012 Patient encounter procedure Chuckie May MD Work Phone: [email or web address]. Start: 04-19-2012 End: 04-19-2012 Patient encounter procedure Chuckie May MD Work Phone: [email or web address]. Start: 04-19-2012 End: 04-19-2012 Routine general medical examination at a [facility] Chuckie May MD Work Phone: [email or web address] Start: 04-04-2012 End: 04-04-2012 Medication Chuckie May MD Work Phone: [email or web address]. Start: 03-29-2012 End: 03-29-2012 Patient encounter procedure Chuckie May MD Work Phone: [email or web address]. Start: 12-18-2011 End: 12-18-2011 Patient encounter procedure Chuckie May MD Work Phone: [employer] Start: 12-01-2011 End: 12-01-2011 Patient encounter procedure Chuckie May MD Work Phone: [email or web address]. Start: 08-11-2011 End: 08-11-2011 Patient encounter procedure Chuckie May MD Work Phone: [email or web address]. Start: 05-16-2011 End: 05-16-2011 Patient encounter procedure Chuckie May MD Work Phone: [email or web address]. Start: 05-16-2011 End: 05-16-2011 Routine or child health check Chuckie May MD Work Phone: [email or web address] [email or web address] Start: 10-04-2010 End: 10-04-2010 Patient encounter procedure Chuckie May MD Work Phone: [employer] Patient encounter status Jessica trinidad LPN Work Phone: [email or web address] Procedures Date Procedure Procedure Detail Performing Clinician Start: 05-25-2020 End: 05-25-2020 Radex foot complete minimum 3 views Chuckie May MD Work Phone: Start: 02-21-2019 End: 02-21-2019 Ct limited/localized follow up study Brendon Collins PA-C Work Phone: Start: 01-17-2018 End: 01-17-2018 Body mass index documented Alejandro Daniel MD Work Phone: Start: 12-25-2017 End: 12-25-2017 Body mass index documented Brendon Collins PA-C Work Phone: Start: 12-25-2017 End: 12-25-2017 Radex foot complete minimum 3 views Alejandro Daniel MD Work Phone: Plan of Treatment Date Care Activity Detail Author Start: 11-06-2023 End: 11-09-2023 Ct pelvis w/o contrast material Pelvis Only CT W/O Contrast (99969)(ACR 5 )(DSN [id number])(G-Code G1004(ME)) Date: 06-Nov-2023 Comments: Clinical Indications: Inguinal hernia suspected, no prior imaging [email or web address] [email or web address] Immunizations Immunization Date Immunization Notes Care Provider Fa marixa 01-04-2016 human papilloma viru s vaccine, quadrivalent Chuckie May MD Work Phone: [email or web address]. Payers Date Payer Category Payer Unknown [id number] Unknown [id number] Unknown [employer] Social History Date Type Detail Facility No Drug Use No Drug Use [facility] [email or web address] Tobacco/Smoke Exposure: Tobacco/ Smoke Exposure: ; None. [email or web address] [employer] [facility], [facility]. [facility] [employer] [employer] Work Phone: None [facility] [email or web address]. Work Phone: Summary Purpose Family History No Family History Records FoundNo Family History Records Found Advance Directives No Advanced Directives Records FoundNo Advanced Directives Records Found Additional Source Comments (unrecognized sect ion and content) No Status Records FoundNo Status Records Found INFORMATION SOURCE (unrecogn ized section and content) DATE CREATED AUTHOR AUTHOR'S ORGANIZ ATION 05/25/2020 [facility] FOR RECORDS PERTAINING TO PATIENTS WHO ARE OR HAVE BEEN ENROLLED IN A CHEMICAL DEPENDENCY/SUBSTANCEABUSE PROGRAM, SOME INFORMATION MAY BE OMITTED. This clinical summary was aggregated from multiple sources. Caution should be exercised in using it in the provision of clinical care. This summary normalizes information from multiple sources, and as a consequence, information in this document may materially change the coding, format and clinical context of patient data. In addition, data may be omitted in some cases. CLINICAL DECISIONS SHOULD BE BASED ON THE PRIMARY CLINICAL RECORDS. The [facility] provides no warranty or guarantee of the accuracy or completeness of information in this document.
[2023-11-23 21:57] LABS: Absolute Neutrophil Count 3.2 X10^3/uL (2.0-7.7); Basophil# 0.08 X10^3/uL; Basophil% 1.2 % (0-1); Eosinophil# 0.16 X10^3/uL; Eosinophils% 2.4 % (0-5); Hematocrit 42.9 % (40-54); Hemoglobin 13.9 g/dL (13.0-16.5); Lymphocyte % 38.2 % (19-41); Mean Corp Hgb Conc 32.4 g/dL (32-36); Mean Corpuscular Hgb 27.9 pg (27.0-32.0); Mean Corpuscular Volume 86.1 fL (80-94); Monocyte# 0.58 X10^3/uL; Monocyte% 8.9 % (0-10); NRBC Flagged by Analyzer 0 % (0-5); Platelet Count 260 K/mm3 (150-450); RBC Distribution Width CV 11.9 % (11.6-14.6); RBC Distribution Width SD 37.2 fl (35.1-43.9); Red Blood Count 4.98 M/mm3 (4.6-6.2); White Blood Count 6.5 K/mm3 (4.4-11.0)
[2023-11-23 22:11] LABS: AST(SGOT) 16 U/L (15-37); Alanine Aminotransfer ALT/SGPT 21 U/L (16-61); Albumin, Serum 3.9 g/dL (3.2-5.0); Alkaline Phosphatase 48 U/L (45-117); Anion Gap 3 (5-15); BUN 14 mg/dL (7-18); BUN/Creat Ratio 11.5 RATIO (10-20); Bilirubin, Direct 0.13 mg/dL (0.00-0.30); Calcium,Total 9.3 mg/dL (8.5-10.1); Chloride 105 mmol/L (98-107); Creatinine, Serum 1.22 mg/dL (0.70-1.30); EST Glomerular Filtration Rate 77 mL/min (>60); Est Glom Filt Rate - Afr Amer 94 mL/min (>60); Globulin 3.4 g/dL (2.2-4.2); Glucose 96 mg/dL (74-106); Potassium 3.8 mmol/L (3.5-5.1); Protein, Total 7.3 g/dL (6.4-8.2); Sodium Level 137 mmol/L (136-145)
[2023-11-23 22:16] LABS: Bacteria 0 SEEN /hpf (None Seen); Mucous, Urine 0 SEEN /hpf (<or=2+); Red Blood Cells-Urine 0 SEEN /hpf (0-5); Squamous Epithelial Cells - UA 0 SEEN /hpf (0-5); White Blood Cells 0 SEEN /hpf (0-5)
[2023-11-23 22:19] LABS: Color, Urine Yellow (Yellow); Glucose, Dipstick Normal (Normal); Ketone-Dipstick Negative (Negative); Leukocyte Esterase-Dipstick Negative /ul (Negative); Nitrite-Dipstick Negative (Negative); Occult Blood-Urine 10 /ul (Negative); Protein-Dipstick Negative (Negative); Specific Gravity, Urine 1.015 (1.002-1.030); Urine Bilirubin Dipstick Negative (Negative); Urine Clarity Clear (Clear); Urine Urobilinogen Normal (Normal); Urine pH 6.5 (5.0 - 8.0)
[2023-11-23 22:21] LABS: Lactic Acid 0.5 mmol/L (0.4-1.9)
[2023-11-23 22:44] VITALS: BP 138/74; RESP 18
[2023-11-23] MEDS: Morphine 4 MG/ML Syringe IV (22:46)
== END 2023-11-23 23:14 | disposition home or self-care (01) ==
PROVIDERS: Emergency Provider Emergency Medicine; PCP Family Medicine; Visit Provider Emergency Medicine
DX: N13.2 Hydronephrosis with renal and ureteral calculous obstruction (principal); R10.9 Unspecified abdominal pain
CPT/HCPCS: 74177; 80048; 80076; 81001; 83605; 85025; 96361; 96374; 96375; 99283; J7030; Q9967; A4216; J2405

== ENCOUNTER 2025-03-13 13:15 | Emergency (ER) | payer OTHER, SELFPAY ==
[2025-03-13 13:17] VITALS: BP 132/78; PULSE 107; RESP 18; TEMP 36.9; O2SAT 96; BMI 30.4
--- NOTE | 2025-03-13 13:32 | RAD_ITS ---
PROCEDURE: HAND MIN 3 VIEWS 03/13/2025 REASON FOR EXAM: INJURY TECHNIQUE: 5 view(s) of the right hand COMPARISON: None provided. RAD/Hand Min 3 Views IMPRESSION: A right thumb laceration is seen at or near the metacarpophalangeal joint. No radiopaque foreign body is noted. At this time, no fracture or dislocation is evident. If clinical concern persists, short-term follow-up imaging may be obtained to r ule out a currently occult fracture. Reading Location: [id number]
--- NOTE | 2025-03-13 13:33 | EX.ED.UPPERE ---
HPI History of Present Illness Chief Complaint: Laceration Informant: patient, spouse/S.O. and EMS Narrative Narrative: Healthy 24-year-old male states he was using a mechanical PVC sewer pipe offbearer to cut a piece of pipe, and the pipe popped and slipped, cutting him in the right hand with the blade on the cutter. He states there was lots of bleeding he is not sure if he could move it or not. Last tetanus was earlier this year. Left hand dominant, right hand injured. No other symptoms or injuries. Tetanus Immunization: <5 years [facility] Medical History (Updated 03/13/25 @ 15:[address] Daniel Quinones MD) Laceration Medical History no medical history no medical history Home Medications ?Medication ?Instructions ?Recorded ?Last Taken ?Type cefadroxil 500 mg capsule 500 mg PO Q12H #14 caps 03/13/25 Unknown Rx Allergy/AdvReac Type Severity Reaction Status Date / Time No Known Allergies Allergy Verified 03/13/25 13:16 Social History Smoking Status: Never smoker ROS ROS ED Constitutional Constitutional ED: Denies chills or fever(s) Musculoskeletal Musculoskeletal: Reports extremity pain; Denies neck pain Integumentary Reports laceration; Denies Abrasions or rash Neurologic Neurologic: Denies paresthesias or weakness EXAM Physical Exam Const Vital Signs: 03/13/25 13:17 Temperature 98.5 F Temperature Source Oral Pulse Rate 107 H Respiratory Rate 18 Blood Pressure 132/78 H Blood Pressure Mean 96 Pulse Ox 96 Oxygen Delivery Method Room Air Positive well nourished and well developed General Appearance ED: well developed and NAD Neck full ROM and supple Back/Spine normal ROM and normal to inspection Extremity Extremity Narrative: 5 cm linear laceration from the left thumb all the way down toward the CMCJ. Good hemostasis with a dressing that is wrapped tightly, but it was starting to create venous congestion throughout the rest of his fingers of his hand so loosening that, there is venous oozing no pulsatile bleeding. On further inspection of the laceration after anesthetizing, the extensor pollicis brevis is completely lacerated with the extensor pollicis longus appearing to be fully intact. He does have the ability to extend the thumb, but he has limited ability to extend fully and flexing due to pain and swelling. Neuro oriented x3, no focal motor deficits and no sensory deficits noted Neuro Narrative: Prior to anesthetizing, patient has decreased sensation to to point discrimination at the radial aspect distal right thumb but there is no complete sensation loss. Sensorium / Orientation: alert Psych mental status grossly normal and thought process normal Skin Skin Narrative: Laceration right hand see above Rashes: no rashes MDM MDM MDM Narrative Medical decision making narrative: This longitudinal wound unfortunately hit the extensor pollicis brevis. I discussed with plastics who agrees, and will see him as an outpatient. The wound was repaired and he was splinted in extension and will be put on prophylactic Duricef and follow-up as an outpatient after the weekend. The wound was clean otherwise. I dressed the wound with bacitracin and gauze before splinting him and cleaned up his hand. 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 Even before anesthetizing him, it was evident that he had some decreased sensation at the radial aspect of the distal right thumb, but without loss of gross sensation. Management Discussion w/another healthcare provider: Certified Family Mediator (Plastics Dr. Mata) Procedures Lacerations right hand/thumb: Length: 5 cm Depth: Tendon Shape: Linear Prep: Sterile Conditions and Chlorhexadine Laceration repair: Irrigated, Lidocaine with epi (4cc, 1%), Local, Skin sutures and Wound explored (Wound clean. Extensor pollicis longus inspected and does not appear to be injured, it is functional when he extends his thumb, extensor pollicis brevis appears to be fully lacerated, and the proximal piece is not visible.) Irrigated (ml): 100 (pressure) Number of Sutures/Berger: 7 Suture Information: Ethilon, Simple and 4-0 Upper Extremity Splints Upper Extremity Splint: Orthoglass and Thumb Spica (NVID after placement) Splint Fabrication: Fabricated Location: Right Discharge Plan Triage Chief Complaint: Laceration ED Provider: Daniel Quinones Dx/Rx/DC Orders Clinical Impression: Laceration of right hand involving extensor tendon Instructions: Splint Care, ED Laceration, Hand: All Closures, ED Tendon Laceration, ED Hand Laceration Nerve Injury Prescriptions: New cefadroxil 500 mg capsule 500 mg PO Q12H Qty: 14 0RF Stand Alone Forms: ED Work / School Excuse Primary Care Provider: Chuckie May Referrals: Alejandro Mata MD [Med Staff - Active Staff] - 03/17/25 (call for appt time) Print Language: Syrian Disposition Disposition: Home, Self Care
[2025-03-13] MEDS: Lidocaine 1% /Epi 1:100 (20ml) 20 ML Vial INFILT (14:12)
[2025-03-13] MEDS: HYDROcodone Bitartrate/Apap 5/325 Tablet PO (14:13)
[2025-03-13 15:47] VITALS: BP 130/81; PULSE 86; RESP 18; TEMP 36.9; O2SAT 98
[2025-03-13] MEDS: Cefadroxil 500 MG CAPSULE PO (16:26)
== END 2025-03-13 16:30 | disposition home or self-care (01) ==
PROVIDERS: Emergency Provider Emergency Medicine; PCP Family Medicine; Visit Provider Emergency Medicine
DX: S66.921A Laceration of unspecified muscle, fascia and tendon at wrist and hand level, right hand, initial encounter (principal); W27.8XXA Contact with other nonpowered hand tool, initial encounter
CPT/HCPCS: 12002; 73130; 99284

== ENCOUNTER 2025-03-20 05:50 | Day surgery (SDC) | payer OTHER, SELFPAY ==
[2025-03-20] VITALS (10 sets, daily range): BP systolic 112–145; BP diastolic 78–104; PULSE 55–109; RESP 14–20; TEMP 36.3–37.3; O2SAT 94–100; BMI 30.1
[2025-03-20] MEDS: Lactated Ringers 1,000 ML 15 ML IV (06:29)
--- NOTE | 2025-03-20 06:47 | PRE.ANES_ITS ---
ASA Classification* ASA Classification ASA Classification: 2 Assessment & Plan Anesthesia* Anesthesia Assessment Anesthesia Assessment: Discussed sedation and/or anesthesia options, risks, benefits, and alternatives with patient/parents/legal guardian/POA. Questions invited. The patient/parents/legal guardian/POA seems to understand and agrees to proceed with anesthesia plan. Reviewed the physical assessment, medical history, allergy history and patient home medications list prior to surgery/procedure/anesthetic and documented any changes. Performed airway and anesthesia risk assessments. Anesthesia Type Anesthesia Type: General Anesthesia Focused Assessment* Temperature: 99.0 F Pulse Rate: 55 Blood Pressure: 125/88 Respiratory Rate: 14 Pulse Ox: 99 Airway Assessment Mouth opens: >3 cm Mallampati Score: II Focused Labs Anesthesia Preop lab: CBC WBC 6.5 K/mm3 (4.4-11.0) 11/23/23 21:45 11/23/23 RBC 4.98 M/mm3 (4.6-6.2) 11/23/23 21:45 11/23/23 Hgb 13.9 g/dL (13.0-16.5) 11/23/23 21:45 11/23/23 Hct 42.9 % (40-54) 11/23/23 21:45 11/23/23 Plt Count 260 K/mm3 (150-450) 11/23/23 21:45 11/23/23 CHEMISTRY Potassium 3.8 mmol/L (3.5-5.1) 11/23/23 21:45 11/23/23 Sodium 137 mmol/L (136-145) 11/23/23 21:45 11/23/23 BUN 14 mg/dL (7-18) 11/23/23 21:45 11/23/23 Creatinine 1.22 mg/dL (0.70-1.30) 11/23/23 21:45 11/23/23 Glucose 96 mg/dL (74-106) 11/23/23 21:45 11/23/23 COAG Pre-Assessment Diagnosis/Proposed Procedure Planned Operative Procedure(s): RIGHT HAND WOUND EXPLORATION POSS TENDON REPAIR POSS NERVE REPAIR Anesthesia History 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 When Was Last Pacemaker Check QUESTION #4 FULL TEXT: You/Your Family Experience fever (hyperthermia) with Anesthesia Last Oral Intake Last Oral intake: Last Oral Intake NPO since 19:00 03/20/25 06:21 Meds taken in AM with sips of No 03/20/25 06:21 water? Meds patient instructed to take am of surgery PONV PONV - wire weaving loom setter: PONV - wire weaving loom setter Female No 03/18/25 13:41 HX of Motion Sickness Yes 03/18/25 13:41 HX of N/V After Surgery Yes 03/18/25 13:41 Non-Smoker No 03/18/25 13:41 Duration of Surgery greater Yes 03/18/25 13:41 than 60 minutes Number of Risk Factors 3 03/18/25 13:41 PONV Score Moderate Risk 03/18/25 13:41 Height & Weight Height & Weight: Anesthesia: Height & Weight Height 5 ft 10 in 03/20/25 06:21 Weight: 95.3 kg 03/20/25 06:21 Body Mass Index (BMI) 30.1 03/20/25 06:21 Respiratory Assessment Respiratory Assessment - wire weaving loom setter: Respiratory Tract Infection Hx - wire weaving loom setter Hx Respiratory Tract Infection No 03/18/25 13:41 STOP Sleep Apnea STOP Sleep Apnea - wire weaving loom setter: STOP Sleep Apnea - wire weaving loom setter Hx Hypertension No 03/18/25 13:41 Hx Sleep Apnea No 03/18/25 13:41 CPAP BIPAP Do you snore loudly (louder No 03/18/25 13:41 than talking or can be heard Do you often feel tired/ No 03/18/25 13:41 fatigued/ sleepy during daytime? Has anyone observed you stop No 03/18/25 13:41 breathing during sleep? STOP Results Negative 03/18/25 13:41 QUESTION #5 FULL TEXT : Do you snore loudly (louder than talking or can be heard through closed doors)? 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 Specify any problems Hx of Preganancy in last 3 N/A 03/18/25 13:41 Months Nurse Filling Out Transfusion DSCHRIBER 03/18/25 13:41 & Questions: Date: 03/18/25 03/18/25 13:41 Time: 13:42 03/18/25 13:41 Patient unable to answer at this time (ie. confused, unrespo /Reproduction History /Reproductive History - wire weaving loom setter: /Reproductive Hx- wire weaving loom setter Hx Now No 03/18/25 13:41 Gestational Age (in weeks): EDC: Hx Hx Para Hx Section SAB No 03/18/25 13:41 Active Medications Active Medications: Current Medications Generic Name Dose Route Start Last Admin Trade Name Freq PRN Reason Stop Dose Admin Cefazolin Sodium 2 gm/ Sodium 110 mls @ 150 mls/hr 03/20/25 07:30 Chloride IV 03/20/25 08:13 INTRAOP ONE Lactated Ringer's 1,000 mls @ 15 mls/hr 03/20/25 06:00 03/20/25 06:29 IV 15 mls/hr .Q48H KAYLIE Administration PFSH Medical History Wears glasses Alcohol use Back pain Migraine headache Chewing tobacco dependence Asthma Laceration Home Medications ?Medication ?Instructions ?Recorded ?Last Taken ?Type cefadroxil 500 mg capsule 500 mg PO Q12H #14 caps 02/2603/19/25 Rx cetirizine 10 mg capsule (Zyrtec) 10 mg PO QDAY PRN al lergy symptoms 03/16/25 Unknown History acetaminophen 500 mg tablet 1,000 mg PO Q6H PRN pain 0 03/18/25 Unknown History (Acetaminophen Extra Strength) fluticasone propionate 50 1 spray intranasal DAILY PRN 03/18/25 Unknown History mcg/actuation nasal allergy symptoms spray,suspension (Flonase Allergy Relief) Allergy/AdvReac Type Severity Reaction Status Date / Time Seasonal Allergies: Uncoded Allergy Mild Itching Verified 03/18/25 13:38 Family History Other Cancer Surgical History Hx of cystoscopy History of kidney surgery Social History Smoking Status: Current every day smoker tobacco type: smokeless tobacco Smokeless tobacco user: chewing tobacco alcohol intake: current details: socially substance use type: does not use additional social history: pt denies illegal drugs, pt denies vaping, denies edibles, denies aspirin use pt does not have family history of blood clots/disorders uses ibuprofen as needed Review of Systems (Anesthesia) ROS Narrative System reviewed and no additional complaints, except as documented.
--- NOTE | 2025-03-20 07:31 | PCM.HP.STD ---
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 X-ray was obtained and did not demonstrate any foreign body or any fractures. Patient was explored and washed out and closed by the emergency room physician who was concerned for an extensor pollicis brevis laceration. His tetanus is up-to-date and the patient was placed on Duricef and splinted in a thumb spica. Today in clinic he reports sharp severe pain, worsened by movements and improved with rest and elevation. He has some numbness on the dorsum of his thumb profusely, but no numbness on the volar surface. 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 Patient is not a smoker. No personal or family history of bleeding or clotting problems Current Encounter (DATE OF SURGERY H&P UPDATE): I saw and examined the patient this morning in pre-operative holding. We discussed risks and benefits of today's surgery and they would like to proceed. NO CHANGE in health history since last seen and evaluated. Ready to proceed with surgery. [facility] Medical History Wears glasses Alcohol use Back pain Migraine headache Chewing tobacco dependence Asthma Laceration Home Medications ?Medication ?Instructions ?Recorded ?Last Taken ?Type cefadroxil 500 mg capsule 500 mg PO Q12H #14 caps 03/13/25 03/19/25 Rx cetirizine 10 mg capsule (Zyrtec) 10 mg PO QDAY PRN allergy symptoms 03/16/25 Unknown History acetaminophen 500 mg tablet 1,000 mg PO Q6H PRN pain 03/18/25 Unknown History (Acetaminophen Extra Strength) fluticasone propionate 50 1 spray intranasal DAILY PRN 03/18/25 Unknown History mcg/actuation nasal allergy symptoms spray,suspension (Flonase Allergy Relief) Allergy/AdvReac Type Severity Reaction Status Date / Time Seasonal Allergies: Uncoded Allergy Mild Itching Verified 03/18/25 13:38 Family History Other Cancer Surgical History Hx of cystoscopy History of kidney surgery Social History Smoking Status: Current every day smoker tobacco type: smokeless tobacco Smokeless tobacco user: chewing tobacco alcohol intake: current details: socially substance use type: does not use additional social history: pt denies illegal drugs, pt denies vaping, denies edibles, denies aspirin use pt does not have family history of blood clots/disorders uses ibuprofen as needed Vital Signs Vital Signs Vital Signs: 03/20/25 06:21 03/20/25 06:21 03/20/25 06:47 Temperature 99.0 F 99.0 F Temperature Source Temporal Pulse Rate 55 L 55 L Respiratory Rate 14 14 Respiratory Pattern Normal Blood Pressure 125/88 H 125/88 H Blood Pressure Mean 100 Blood Pressure Source Monitor Blood Pressure Position Supine Blood Pressure Location Left Arm Pulse Ox 99 99 Oxygen Delivery Method Room Air Weight Weight: 210 lb 1.608 oz Body Mass Index (BMI) 30.1 Physical Exam Narrative Right Upper Extremity Inspection: 5 cm laceration on the dorsum of the right thumb over the metacarpal MP 1 vertically oriented. Patient has a palmaris longus Palpation: No fluid collections. No collateral ligament instability at the MCP joint. Motor: Able to bend and extend all MP, PIP, and DIP joints. He is able to extend the thumb IP joint and bend the thumb IP joint. He does appear to have some weakness with extension of the thumb metacarpal phalangeal joint, and he has some difficulty opposing the thumb to any of the fingers. Sensory: Intact to light touch on the radial and ulnar borders. He has 2 mm 2-point discrimination on the radial and ulnar borders of the thumb and the thumb tip; however, he reports subjective numbness radial and lateral to the laceration on the dorsum of the thumb. Vascular: Finger tips are warm and well perfused with <2 second capillary refill. Assessment & Plan Assessment/Plan (1) Penetrating wound of upper extremity: (2) Laceration of right hand involving extensor tendon: PLAN: Plan I talked to the patient extensively about the risks of surgery, including bleeding, infection, damage to surrounding structures, poor scaring, surgical site dehiscence and wound formation, need for wound care, need for repeat operations, failure to obtain the desired result, rerupture of the extensor tendons postoperatively/repair failure, hardware failure/infection, need for revisions and the risks of anesthesia including blood clots. The benefits and alternatives of this surgery were also discussed. All of their questions were answered, and they agreed to proceed with surgery. I talked to him about placement of a suture anchor potentially, and I also talked to him about the need for a potential tendon interposition graft for reconstruction of the EPB (we talked about palmaris longus). Plan for exploration of right upper extremity hand wound with possible tendon repair possible nerve repair. Plan for general anesthesia with an LMA Patient placed back into a thumb spica splint. CPT codes for insurance prior authorization are as follows: 53066, [id number], [id number] INTERVAL H&P PLAN, DATE OF SURGERY: I reiterated the risks, benefits, and alternatives to the procedure, including those documented above. We will proceed with surgery today.
[2025-03-20] MEDS: Cefazolin 2 GM in 0.9% Normal Saline (100mL Bag) 100 ML IV (07:45)
--- NOTE | 2025-03-20 07:52 | OP.PCM_ITS ---
Problems Associated Problem List Diagnoses (1) Penetrating wound of upper extremity: (2) Laceration of right hand involving extensor tendon: Operative Report (Standard) Operative Information Date of Procedure: 03/20/25 Pre-Operative Diagnosis: Right dorsal thumb sharp penetrating injury with tendon injuries Post-Operative Diagnosis: Same Surgery/Procedure Performed: 1) Repair of right thumb extensor pollicis longus (EPL) (CPT: 10195) ruby on rails developer: Yes Lift Electrician: Mesfin العلي Tasks completed by assistant banquet manager: Retracting Type of Anesthesia: General/Supplemental (10 cc of 0.25% Marcaine with 1:200,000 epinephrine ) RN Documented Start/Stop Times: Operation Date: 03/20/25 07:30 Case Time Into Pre-Op 03/20/25 05:57 Out of Pre-Op 03/20/25 07:32 Anesthesia Start 03/20/25 07:35 Into Room 03/20/25 07:35 Procedure Start 03/20/25 07:57 Procedure End 03/20/25 09:02 Anesthesia End 03/20/25 09:06 Out of Room 03/20/25 09:06 Into Recovery 03/20/25 09:10 Out of Recovery 03/20/25 09:49 Into Phase II Recovery 03/20/25 09:50 Out of Phase II 03/20/25 11:53 Procedure Start Time: 07:57 Procedure Stop Time: 09:02 Select all DRAINS/GRAFTS/IMPLANTS that apply: None Estimated Blood Loss: 20 cc Specimen collected: No Description of surgery: Indications: Giorgio Vail is a 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 There was concern for tendon injury by the emergency department physician and he had limited thumb retropulsion and opposition in clinic. Presents today for repair/exploration. Understands risks, benefits, and alternatives of the procedure. Procedure details: Patient was correct identified in preoperative holding and taken back to the operating room he was administered general anesthesia and prepped and draped in sterile fashion. A timeout was performed. A tourniquet was applied on the right arm. The incision was opened with tenotomy scissors to remove the sutures and the wound was washed out with 3 L normal saline and 450 cc of Irrisept. Esmarch was used to exsanguinate and the tourniquet was inflated to 250 mmHg. The EPB was intact, but the EPL was lacerated approximately 60% on the radial side. The laceration also crushed and avulsed some of the adductor pollicis including approximately 50% of the myotendinous junction near the base of P1. There was no collateral ligament instability. Given the degree of injury to the adductor pollicis and the residual adductor pollicis and residual tendon, decision was made to defer any further repair of the abductor pollicis as there was no obvious structures that could be repaired with suture techniques. The EPL was repaired with 3 separate horizontal mattress 3-0 FiberWire suture (tendon was flat at this point and connected to the extensor expansion, and therefore horizontal mattress sutures were used). The wound was further irrigated. The wound was closed with horizontal mattress 3-0 nylon interrupted sutures. Xeroform and a thumb spica plaster splint was applied. Patient was awakened and taken to the PACU in stable condition and tolerated the procedure well. Postoperative plan: Follow-up on Sunday, 24 Mar 2025, for wound check and placement of a cast. Plan for 3 weeks of immobilization in a thumb spica followed by extensor tendon repair protocol with hand therapist. Surgical Findings: * Intact extensor pollicis brevis (EPB) * 60% lacerated extensor pollicis longus (EPL) * Lacerated and crushed adductor pollicis with partial (50%) avulsion at the myotendinous junction (with no obvious associated tissues that were repairable with sutures or surgical technique) * No thumb collateral ligament instability or thumb collateral ligament injury. Complications Complications: No Admit VTE Documentation VTE Mechan Device Prophylaxis: SCD's
[2025-03-20] MEDS: Bupiv/Epi 0.25% 30 ML Vial (08:48)
--- NOTE | 2025-03-20 09:16 | PCM.POST.ANE ---
Anesthesia: Postop Eval I Current Vital Signs Temperature: 97.4 F Pulse Rate: 109 Blood Pressure: 132/95 Respiratory Rate: 20 Pulse Ox: 100 Oxygen Delivery Method: Room Air Assessment Airway patent: Yes Spontaneous unlabored respirations: Yes Mental status: Awake nausea: No Vomiting: No Anesthesia Complication: No Fluid Hydration Crystalloid volume administer (ml): 1,000 Total IV fluid infused: 1,000 Progress Note Anesthesia document: Postop Eval 1 completed: Yes
--- NOTE | 2025-03-20 10:10 | POSTOPAN2_ITS ---
Anesthesia Postop Eval I Sum Postop Eval Completion status Anesthesia document: Postop Eval 1 completed: Yes Anesthesia Postop Eval I Summary Anesthesia Postop Eval I Summary: Anesthesia Postop Eval I: Assessment Summary Airway patent Yes 03/20/25 09:17 ASSISTANT [email or web address] Spontaneous unlabored Yes 03/20/25 09:17 ASSISTANT [email or web address] respirations Mental status Awake 03/20/25 09:17 ASSISTANT [email or web address] nausea No 03/20/25 09:17 ASSISTANT SOFTBALL [email or web address] Vomiting No 03/20/25 09:17 ASSISTANT SOFTBALL [email or web address] Anesthesia Postop Eval I: Fluid Summary Crystalloid volume administer 1,000 03/20/25 09:17 ASSISTANT SOFTBALL [email or web address] (ml) Colloids volume administered ( ml) Blood Product volume administered (ml) Total IV fluid infused 1,000 03/20/25 09:17 ASSISTANT [email or web address] Anesthesia Postop Eval I: Summary Notes Anesthesia Complication No 03/20/25 09:17 ASSISTANT [email or web address] [email or web address] Anesthesia Complication Comment: Post-operative progress note Anesthesia: Postop Eval II Evaluation Mental status: Awake Pain Level: 0 nausea: No Vomiting: No
--- NOTE | 2025-03-20 10:10 | PCM.POSTANE2 ---
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 BOILER [email or web address] Spontaneous unlabored Yes 03/20/25 09:17 BLEACH BOILER [email or web address] respirations Mental status Awake 03/20/25 09:17 BLEACH BOILER [email or web address] nausea No 03/20/25 09:17 BLEACH BOILER [email or web address] Vomiting No 03/20/25 09:17 BLEACH BOILER [email or web address] Anesthesia Postop Eval I: Fluid Summary Crystalloid volume administer 1,000 03/20/25 09:17 BLEACH BOILER [email or web address] (ml) Colloids volume administered ( ml) Blood Product volume administered (ml) Total IV fluid infused 1,000 03/20/25 09:17 BLEACH BOILER [email or web address] Anesthesia Postop Eval I: Summary Notes Anesthesia Complication No 03/20/25 09:17 BLEACH BOILER [email or web address] Anesthesia Complication Comment: Post-operative progress note Anesthesia: Postop Eval II Evaluation Mental status: Awake Pain Level: 0 nausea: No Vomiting: No
[2025-03-20] MEDS: oxyCODONE 5 MG Tablet PO (10:32)
[2025-03-20] MEDS: Acetaminophen 500 MG Tablet 1000 MG PO (10:32)
[2025-03-20] MEDS: Ketorolac 15 MG/ML Vial IV (10:32)
== END 2025-03-20 11:54 | disposition home or self-care (01) ==
LOC: SDC 05:50 → AC 05:51
PROVIDERS: PCP Family Medicine; Referring Provider Surgery Plastic and Reconstructive Surgery; Visit Provider Surgery Plastic and Reconstructive Surgery
PROC: (CPT 26418; principal; 2025-03-20 07:15)
DX: S66.221D Laceration of extensor muscle, fascia and tendon of right thumb at wrist and hand level, subsequent encounter (principal); F17.220 Nicotine dependence, chewing tobacco, uncomplicated; W26.8XXD Contact with other sharp object(s), not elsewhere classified, subsequent encounter
CPT/HCPCS: 26418; 01810; J2405

== ENCOUNTER 2025-05-12 07:30 | Outpatient (RCR) | payer OTHER, SELFPAY ==
--- NOTE | 2025-04-09 08:05 | HP.OTEVAL_ITS ---
Patient's Visit Information Visit Information Visit Information: MAXIMO GARCÍA is a 24 year old M, referred to Occupational Therapy by Dr. Alejandro Mata MD, with a diagnosis of EPL laceration. Date of Evaluation: 04/08/25 Occupational Therapist: Ifeoma Saldivar, OTR/John, CHT Subjective Subjective: This 24 year old male was seen for OT eval with dx of EPL laceration and lacerated adductor pollicis with partial (50% avulsion at the myotendinous junction.) . DOI was on Mar 13 2025. Whild using PVC pipe bender he sustained a laceration on his right thumb. DOS was on March 20, 2025 pt underwent a EPL repair zone T4 pt arrives 2 weeks and 5 days s/p from EPL repair. pt in need of custom orthosis pt provide protection and support while repaired structures are healing. pt is left handed pts is helping with daily tasks at this time. Pain right hand: Current Pain Intensity: 2 Pain Intensity Range: 2 ROM ROM Comments: pt demo with right thumb IP flexion 20* full extension pt right thumb MP 10* pt demo with limited functional ROM at this time due to newly healing str uctures. Strength Strength Comments: will test later date ( week 6-8) Sensation Sensation Comments: denies issues Quick DASH-Disab of Arm,Shoulder& Hand Quick DASH Score: [phone] Goals Goal:Daily scar massage when approriate: Yes Goal:ROM equal to unaffected hand: Yes Goal:Senior Architectural Designer/Pinch strength at least 75% of unaffected hand: Yes Goal:No pain with affected hand use: Yes Goal:Full use of affected hand in daily activities including work: Yes Goal:Decrease scar hypersensitivity: Yes Rehabilitation General Assessment: pt arrives to OT 2 weeks and 5 days s/p from a Zone IV of EPL laceration 60% or radial side with repair. pt suffered an Adductor Pollicis avulsed /crush including 50% of the myotendinous junction near the base of P1. pt demo with need for OT services 1-2x week for 10 weeks. Pt demo need for custom orthosis to provide protection and support while tendon repair stabilizes/heals. Today therapist mike. hand based short opponens with thumb in mid position and IP included. Therapist ed. pt on IP flexion to 30*, Scar mtg. and orthosis use. pt demo understanding and agree to POC. Rehabilitation Potential: Excellent Anticipated Interventions Anticipated Interventions: A/AAROM/PROM, Strengthening, Edema Control, Scar Care, Triggerpoint Release, Modalities, Joint Protection/Energy Conservation, Education re Diagnosis and Caregiver Training Visit Plan Frequency: 1-2x /Week Duration: 3 Months General Plan: Week 2-5 Week 3: if no lag, begin thumb IP active flexion 100% of normal range. Remove orthosis, place and hold thumb in slight radial abduction with thumb MCP & IP in 0°. Active MCP flexion up to 25°with IP in 0°. D/C splint at 6 weeks Week 5-8 Full active MCP and IP flexion, Isolated and combined fine motor activity Week 6-8 gradual strengthening PRE's TEXT: Thank you for the opportunity to evaluate your patient. For Medicare and Medicare HMO plans, please review the plan of care and approve it. It will need to be FAXED BACK to us at [phone] for Medicare purposes. Please let me know if there are questions or concerns regarding this plan of care. Physician Signature: Date:
--- NOTE | 2025-07-21 11:38 | HP.OT.NRP ---
Patient Information Patient Information: MAXIMO GARCÍA was seen in my office for initial evaluation on 04/08/25. The following Plan of Care was established for this patient: POC Established Initial Frequency: 1-2x /Week Initial Duration: 3 Months Plan: continue per POC for early active motion for EPL repair x1 week to initiate motion Anticipated Interventions Anticipated Interventions: A/AAROM/PROM, Strengthening, Edema Control, Scar Care, Triggerpoint Release, Modalities, Joint Protection/Energy Conservation, Education re Diagnosis and Caregiver Training Last Seen Last Seen: This patient was last seen in our office 05/12/25. Pertinent comments regarding their Occupational therapy will appear below: pt has not scheduled further apts. and due to time lapse in services pt is d/c at this time. At this point I will be discontinuing this patient from occupational therapy. I would be happy to see this patient again in the future if found appropriate by the physician. Thank you! Ifeoma Saldivar, OTR/L, CHT
== END 2025-05-12 19:00 | disposition home or self-care (01) ==
LOC: OT 07:30
PROVIDERS: PCP Family Medicine; Referring Provider Surgery Plastic and Reconstructive Surgery; Visit Provider Surgery Plastic and Reconstructive Surgery
DX: M67.89 Other specified disorders of synovium and tendon, multiple sites (principal)
CPT/HCPCS: 97110; 97140; 97166; 97530

== ENCOUNTER → 2025-09-07 | Outpatient (CLI) | payer BC, SELFPAY ==
[2025-09-07 17:58] LABS: Hematocrit 42.9 % (40-54); Hemoglobin 14.7 g/dL (13.0-16.5); Immature Granulocytes Count 0.010 X10^3/uL (0.0-0.0); Mean Corp Hgb Conc 34.3 g/dL (32-36); Mean Corpuscular Volume 85.1 fL (80-94); Mean Platelet Vol. 10.4 fl (6.2-12.0); NRBC Flagged by Analyzer 0 % (0-5); Platelet Count 273 K/mm3 (150-450); RBC Distribution Width CV 12.4 % (11.6-14.6); RBC Distribution Width SD 38.5 fl (35.1-43.9); Red Blood Count 5.04 M/mm3 (4.6-6.2); White Blood Count 6.5 K/mm3 (4.4-11.0)
[2025-09-07 18:35] LABS: AST(SGOT) 28 U/L (<=37); Alanine Aminotransfer ALT/SGPT 19 U/L (<=46); Albumin, Serum 4.7 g/dL (3.5-5.0); Alkaline Phosphatase 48 U/L (40-129); Anion Gap 11 (5-15); BUN 11 mg/dL (4-19); BUN/Creat Ratio 10.4 RATIO (10-20); Calcium,Total 9.4 mg/dL (7.6-11.0); Carbon Dioxide 25.2 mmol/L (21.0-32.0); Chloride 105 mmol/L (98-108); Globulin 2.7 g/dL (2.2-4.2); Glucose 88 mg/dL (70-99); Potassium 3.7 mmol/L (3.3-5.1); Vitamin B12 437 pg/mL (180-914)
[2025-09-07 18:38] LABS: CRP < 3.00 mg/L (0.0-3.0); Magnesium 2.2 mg/dL (1.5-2.2)
[2025-09-09 14:08] LABS: ANTINUCLEAR ANTIBODIES DIRECT Negative (Negative)
== END | disposition home or self-care (01) ==
LOC: MTLAB 14:34
PROVIDERS: PCP Family Medicine
DX: G43.909 Migraine, unspecified, not intractable, without status migrainosus (principal)
CPT/HCPCS: 36415; 80053; 82607; 83735; 84443; 85025; 85652; 86038; 86140; 86225

== ENCOUNTER → 2025-09-21 | Outpatient (CLI) | payer BC, SELFPAY ==
--- NOTE | 2025-09-21 16:30 | MRI_ITS ---
PROCEDURE: MRI BRAIN WITHOUT CONTRAST 09/21/2025 REASON FOR EXAM: MIGRAINE HEADACHES TECHNIQUE: Procedure Code: MRIBR Modality: MR Procedure: BRAIN WITHOUT CONTRAST Multiplanar and multisequential MRI of the brain was performed without contrast. COMPARISON: None available. FINDINGS: Ventricular and sulcal size and configuration are within normal limits. No regions of abnormal restricted diffusion to indicate recent infarct. No extra-axial collection or mass-effect. Major intracranial vascular flow voids are preserved. Grossly unremarkable orbits. Polypoid mucosal thickening in the [id number]-right maxillary sinuses with small amount of dependent fluid, and mucosal thickening in the bilateral anterior ethmoid air cells. Trace scattered fluid signal in the dependent right mastoid air cells. MRI/Brain without Contrast IMPRESSION: Normal unenhanced brain MRI. Paranasal sinus disease, may be a cause for headaches. Reading Location: [id number]
== END | disposition home or self-care (01) ==
LOC: MRI 16:27
PROVIDERS: PCP Family Medicine
DX: G43.909 Migraine, unspecified, not intractable, without status migrainosus (principal)
CPT/HCPCS: 70551